=== PATIENT | male | born 1980 | race Two or more races ===

== ENCOUNTER 2021-12-29 09:50 | Inpatient (IN) | payer OTHER ==
[~2021-12-29] VITALS: Ht 180.3 cm; Wt 100.7 kg
[2021-12-29] MEDS ORDERED: cloNIDine HCL 0.1 MG TAB PO ONE (11:30)
[2021-12-29] MEDS ORDERED: EPINEPHrine HCL 1 MG/1 ML AMP SC ONE (11:30)
[2021-12-29] MEDS ORDERED: methylPREDNISolone SOD SUCC 125 MG/2 ML VL IV ONE (11:30)
[2021-12-29] MEDS ORDERED: SODIUM CHLORIDE 0.9% 1,000 ML IV ONE (11:30)
[2021-12-29 12:13] LABS: Basophils # (auto) 0.2 10 ^3/uL (0-0.2); Basophils % (auto) 0.8 % (0.0-2.0); Eosinophils # (auto) 0.3 10 ^3/uL (0-0.8); Eosinophils % (auto) 1.5 % (0.0-7.0); Hematocrit 48.7 % (41.0-53.0); Hemoglobin 16.5 g/dL (13.5-17.5); Lymphocytes # (auto) 2.3 10 ^3/uL (0.4-5.4); Lymphocytes % (auto) 11.1 % (10.0-50.0); Mean Corpuscular Hemoglobin 31.3 pg (28.0-32.0); Mean Corpuscular Hgb Conc. 33.9 g/dL (32.0-36.0); Mean Corpuscular Volume 92.4 fL (80.0-100.0); Monocytes # (auto) 1.6 10 ^3/uL (0-1.3); Neutrophils # (auto) 16.2 10 ^3/uL (1.6-8.6); Neutrophils % (auto) 78.6 % (37.0-80.0); Nucleated Red Blood Cells % 0.2 %; Red Blood Cells 5.27 10^6/uL (4.5-5.90); Red Cell Distribution Width 13.1 % (11.8-14.3); White Blood Cell 20.6 10^3/uL (4.4-10.8)
[2021-12-29 12:29] LABS: Albumin 3.5 g/dL (3.4-5.0); BUN/Creatinine Ratio 8.5; Calcium 9.4 mg/dL (8.5-10.1); Potassium 3.8 mmol/L (3.5-5.1)
[2021-12-29 12:32] LABS: Bilirubin, Total 0.8 mg/dL (0.2-1.0); Total Protein 8.5 g/dL (6.4-8.2)
[2021-12-29] MEDS ORDERED: NITROGLYCERIN 0.4 MG SL TAB SL PRN (16:00)
[2021-12-29] MEDS ORDERED: MORPHINE SULFATE INJECTION 2 MG/ML SYRG IV PRN ×2 (16:00→18:00)
[2021-12-29] MEDS ORDERED: diphenhdrAMINE HCL 50 MG/1 ML VL IV PRN (17:15)
[2021-12-29] MEDS ORDERED: AZITHROMYCIN 500MG/ 250ML 250 ML IV ONE (17:30)
[2021-12-29] MEDS ORDERED: LORazepam 0.5 MG TAB PO PRN (18:00)
[2021-12-29] MEDS ORDERED: FAMOTIDINE (10MG/ML) 2ML VL IV ONE (18:00)
[2021-12-29] MEDS ORDERED: ACETAMINOPHEN 325 MG TAB PO PRN (18:00)
[2021-12-29] MEDS ORDERED: HYDROcodone-ACET 5/325MG TAB PO PRN (18:00)
[2021-12-29] MEDS ORDERED: DOCUSATE SOD 100 MG CAP PO PRN (18:00)
[2021-12-29] MEDS: SODIUM CHLORIDE 0.9% 1,000 ML IV SCH (18:00)
[2021-12-29] MEDS: prednisoLONE ACETATE 1% OPTH SUSP 5ML EACHEYE SCH ×2 (18:00→21:25)
[2021-12-29] MEDS ORDERED: ONDANSETRON HCL 4 MG/2 ML VIAL IV PRN (18:00)
[2021-12-29] MEDS: hydrALAZINE HCL 20 MG/ML VL IV PRN (19:25)
[2021-12-29 19:30] LABS: Magnesium 2.5 mg/dL (1.6-2.6)
[2021-12-29 19:32] LABS: Phosphorus 3.2 mg/dL (2.5-4.90)
[2021-12-29 20:00] VITALS: BP 147/77
[2021-12-29] MEDS: methylPREDNISolone SOD SUCC 40 MG/ML VL IV SCH (21:26)
[2021-12-29 22:00] VITALS: BP 147/77
[2021-12-30] MEDS ORDERED: AZEL0.058 (01:16)
[2021-12-30] MEDS ORDERED: DIPH-599 PO (01:16)
[2021-12-30] MEDS ORDERED: LORA-622 PO (01:16)
[2021-12-30] MEDS ORDERED: AZEL0.054 OP (01:16)
[2021-12-30] MEDS: prednisoLONE ACETATE 1% OPTH SUSP 5ML EACHEYE SCH ×4 (02:00→14:00)
[2021-12-30 05:00] VITALS: BP 172/113
[2021-12-30] MEDS: hydrALAZINE HCL 20 MG/ML VL IV PRN ×2 (05:16→11:41)
[2021-12-30 06:32] LABS: Basophils # (auto) 0 10 ^3/uL (0-0.2); Basophils % (auto) 0.3 % (0.0-2.0); Eosinophils # (auto) 0 10 ^3/uL (0-0.8); Hematocrit 43.3 % (41.0-53.0); Hemoglobin 15.2 g/dL (13.5-17.5); Lymphocytes # (auto) 1.4 10 ^3/uL (0.4-5.4); Lymphocytes % (auto) 9.4 % (10.0-50.0); Mean Corpuscular Hemoglobin 31.9 pg (28.0-32.0); Mean Corpuscular Hgb Conc. 35.2 g/dL (32.0-36.0); Mean Corpuscular Volume 90.8 fL (80.0-100.0); Monocytes # (auto) 0.5 10 ^3/uL (0-1.3); Monocytes % (auto) 3.5 % (0.0-12.0); Neutrophils # (auto) 13.1 10 ^3/uL (1.6-8.6); Neutrophils % (auto) 86.8 % (37.0-80.0); Red Blood Cells 4.77 10^6/uL (4.5-5.90); Red Cell Distribution Width 12.7 % (11.8-14.3); White Blood Cell 15.1 10^3/uL (4.4-10.8)
[2021-12-30 06:37] LABS: INR 1.16 (0.9-1.15); Partial Thromboplastin Time 30.8 sec (23.6-33.0)
[2021-12-30 06:44] LABS: Potassium 3.8 mmol/L (3.5-5.1)
[2021-12-30 06:54] LABS: Albumin 3.1 g/dL (3.4-5.0); BUN/Creatinine Ratio 13.6; Bilirubin, Total 0.6 mg/dL (0.2-1.0); Calcium 9.2 mg/dL (8.5-10.1); Magnesium 2.2 mg/dL (1.6-2.6); Phosphorus 3.7 mg/dL (2.5-4.90); Total Protein 7.9 g/dL (6.4-8.2)
[2021-12-30 07:03] LABS: Thyroid Stimulating Hormone 0.39 uIU/mL (0.358-3.74)
[2021-12-30 07:37] LABS: Alcohol, Urine < 3.0 mg/dL (0-10); Amphetamine Screen, Urine NEGATIVE (NEGATIVE); Barbiturate Scree,Urine NEGATIVE (NEGATIVE); Benzodiazephine Screen, Urine NEGATIVE (NEGATIVE); Cannabinoid Screen, Urine POSITIVE (NEGATIVE); Cocaine Screen, Urine NEGATIVE (NEGATIVE); Opiate Scree,Urine NEGATIVE (NEGATIVE); Phencyclidine Screen, Urine NEGATIVE (NEGATIVE)
[2021-12-30] MEDS: methylPREDNISolone SOD SUCC 40 MG/ML VL IV SCH ×2 (07:50→14:00)
[2021-12-30 09:00] VITALS: BP 178/104
[2021-12-30] MEDS ORDERED: AZITHROMYCIN 500MG/ 250ML 250 ML IV SCH (10:00)
[2021-12-30] MEDS ORDERED: ENOXAPARIN SOD 40 MG/0.4 ML SYRINGE SC SCH (10:00)
[2021-12-30] MEDS ORDERED: FAMOTIDINE (10MG/ML) 2ML VL IV SCH (10:00)
[2021-12-30] MEDS: SODIUM CHLORIDE 0.9% 1,000 ML IV SCH (10:40)
[2021-12-30] MEDS ORDERED: METH4PAK PO (11:58)
[2021-12-30] MEDS ORDERED: EPIN0.3I27 IJ (11:58)
[2021-12-30 13:00] VITALS: BP 156/89
[2021-12-30 14:02] VITALS: BP 155/99
== END 2021-12-30 14:34 | disposition home or self-care (01) | DRG 916 ==
LOC: ER 09:50 → OVERFLOW 16:00 → CENTRAL 17:10
PROVIDERS: ADMIT Hospitalist; ATTEND Internal Medicine
DX: T78.49XA Other allergy, initial encounter (principal); J21.9 Acute bronchiolitis, unspecified; E66.9 Obesity, unspecified; F41.9 Anxiety disorder, unspecified; T78.1XXA Other adverse food reactions, not elsewhere classified, initial encounter; J30.2 Other seasonal allergic rhinitis; X58.XXXA Exposure to other specified factors, initial encounter; I10 Essential (primary) hypertension; Z68.31 Body mass index [BMI] 31.0-31.9, adult; Z20.822 Contact with and (suspected) exposure to COVID-19
CPT/HCPCS: 36415; 71045; 80053; 80061; 80307; 82728; 83036; 83615; 83690; 83735; 83880; 84100; 84443; 84484; 85025; 85379; 85610; 85730; 87040; 87070; 87086; 87205; 96361; 96372; 96374; G0378; J0171; J3490

== ENCOUNTER 2023-08-23 07:42 | Emergency (ER) | payer OTHER ==
[~2023-08-23] VITALS: Ht 180.3 cm; Wt 109.0 kg
[~2023-08-23 07:42] MED LIST: AZEL0.054 OP; AZEL0.058; DIPH-599 PO; EPIN0.3I27 IJ; LORA-622 PO; METH4PAK PO
[2023-08-23 07:59] VITALS: BP 156/116; RESP 18; O2SAT 97
[2023-08-23] MEDS ORDERED: cloNIDine HCL 0.1 MG TAB PO ONE (08:00)
[2023-08-23 08:02] VITALS: PULSE 69
[2023-08-23 08:41] LABS: Basophils # (auto) 0.1 10 ^3/uL (0-0.2); Basophils % (auto) 1.1 % (0.0-2.0); Eosinophils # (auto) 0.3 10 ^3/uL (0-0.8); Eosinophils % (auto) 2.8 % (0.0-7.0); Hematocrit 49.1 % (41.0-53.0); Hemoglobin 16.3 g/dL (13.5-17.5); Lymphocytes # (auto) 2.4 10 ^3/uL (0.4-5.4); Lymphocytes % (auto) 21.4 % (10.0-50.0); Mean Corpuscular Hemoglobin 30.7 pg (28.0-32.0); Mean Corpuscular Hgb Conc. 33.3 g/dL (32.0-36.0); Mean Corpuscular Volume 92.1 fL (80.0-100.0); Monocytes # (auto) 0.7 10 ^3/uL (0-1.3); Monocytes % (auto) 6.5 % (0.0-12.0); Neutrophils # (auto) 7.7 10 ^3/uL (1.6-8.6); Neutrophils % (auto) 68.2 % (37.0-80.0); Nucleated Red Blood Cells % 0.1 %; Red Blood Cells 5.33 10^6/uL (4.5-5.90); Red Cell Distribution Width 13.2 % (11.8-14.3); White Blood Cell 11.4 10^3/uL (4.4-10.8)
[2023-08-23 08:58] LABS: Alanine Aminotransferase 26 U/L (7-40); Albumin 4.6 g/dL (3.2-4.8); Alkaline Phosphatase 94 U/L (46-116); Anion Gap 6 (5-15); Aspartate Aminotransferase 19 U/L (13-40); Blood Urea Nitrogen 6 mg/dL (9-23); Calcium 8.6 mg/dL (8.7-10.4); Carbon Dioxide 24 mmol/L (20-30); Chloride 108 mmol/L (98-107); Glucose 107 mg/dL (74-106); Potassium 4.1 mmol/L (3.5-5.1); Sodium 138 mmol/L (136-145)
[2023-08-23 08:59] LABS: Bilirubin, Total 1.1 mg/dL (0.2-1.0); Total Protein 7.1 g/dL (5.7-8.2)
== END 2023-08-23 10:37 | disposition left against medical advice (07) ==
LOC: ER 07:42
DX: I10 Essential (primary) hypertension (principal); R04.0 Epistaxis; Z79.899 Other long term (current) drug therapy
CPT/HCPCS: 36415; 80053; 85025; 93005